=== PATIENT | female | born 1985 | race Caucasian/White ===

== ENCOUNTER 2017-10-22 14:40 | Outpatient (CLI) | payer OTHER, MEDICAID ==
[2017-10-22 16:19] LABS: ADD MAN DIFF? NO
[2017-10-22 16:24] LABS: BASOPHILS % 0.3 % (0.0-2.0); EOSINOPHILS # 0.2 10^3/ul (0.0-0.5); EOSINOPHILS % 1.5 % (0.0-7.0); HEMATOCRIT 34.3 % (37.0-47.0); HEMOGLOBIN 11.5 g/dl (12.0-16.0); LYMPHOCYTES # 1.7 10^3/ul (0.8-2.9); LYMPHOCYTES % 14.2 % (15.0-51.0); MEAN CORPUSCULAR HEMOGLOBIN 28.3 pg (29.0-33.0); MEAN CORPUSCULAR HGB CONC 33.5 g/dl (32.0-37.0); MEAN CORPUSCULAR VOLUME 84.3 fl (82.0-101.0); MONOCYTE # 0.6 10^3/ul (0.3-0.9); MONOCYTES % 4.8 % (0.0-11.0); NEUTROPHIL # 9.4 10^3/ul (1.6-7.5); NEUTROPHILS % 77.9 % (39.0-77.0); PLATELET COUNT 277 10^3/UL (140-415); RED BLOOD COUNT 4.07 10^6/ul (4.20-5.40); RED CELL DISTRIBUTION WIDTH 13.8 % (11.5-14.5)
[2017-10-22 16:46] LABS: ALANINE AMINOTRANSFERASE 31 IU/L (13-69); ALBUMIN 3.6 g/dl (3.3-4.9); ALBUMIN/GLOBULIN RATIO 1.02; ALKALINE PHOSPHATASE 110 IU/L (42-121); ANION GAP 13 (8-16); ASPARTATE AMINO TRANSFERASE 21 IU/L (15-46); BILIRUBIN,INDIRECT 0.1 mg/dl (0-1.1); BILIRUBIN,TOTAL 0.1 mg/dl (0.2-1.3); BLOOD UREA NITROGEN 9 mg/dl (7-20); CALCIUM 9.5 mg/dl (8.4-10.2); CARBON DIOXIDE 25 mmol/L (21-31); CHLORIDE 106 mmol/L (97-110); CREATININE 0.47 mg/dl (0.44-1.00); GLUCOSE 86 mg/dl (70-220); POTASSIUM 3.6 mmol/L (3.5-5.1); SODIUM 140 mmol/L (135-144); TOTAL PROTEIN 7.1 g/dl (6.1-8.1)
[2017-10-22 16:48] LABS: ADD UMIC NO; UR ASCORBIC ACID NEGATIVE (NEGATIVE); UR BILIRUBIN (Dip) NEGATIVE (NEGATIVE); UR BLOOD (Dip) NEGATIVE (NEGATIVE); UR CLARITY CLEAR (CLEAR); UR COLOR COLORLESS (YELLOW); UR GLUCOSE (Dip) NEGATIVE (NEGATIVE); UR KETONES (Dip) NEGATIVE (NEGATIVE); UR LEUKOCYTE ESTERASE (Dip) NEGATIVE Leu/ul (NEGATIVE); UR NITRITE (Dip) NEGATIVE (NEGATIVE); UR TOTAL PROTEIN (Dip) NEGATIVE (NEGATIVE); UR UROBILINOGEN (Dip) NEGATIVE (NEGATIVE)
[2017-10-22 17:16] LABS: HEPATITIS B SURFACE ANTIGEN NEGATIVE (NEGATIVE)
[2017-10-22 17:33] LABS: HIV 1&2 ANTIBODY NEGATIVE (NEGATIVE)
[2017-10-22 21:09] LABS: RUBELLA IGG AB SCREEN POSITIVE
[2017-10-23 17:38] LABS: RAPID PLASMA REAGIN NONREACTIVE (NR)
== END 2017-10-22 18:00 | disposition home or self-care (01) ==
LOC: OBT 14:40 → L-D 14:40 → OBT 18:00
DX: O09.32 Supervision of pregnancy with insufficient antenatal care, second trimester (principal); Z3A.23 23 weeks gestation of pregnancy
CPT/HCPCS: 76815; 76817; 80053; 81003; 85025; 86592; 86703; 86762; 86900; 86901; 87340; 87591

== ENCOUNTER 2018-02-12 14:17 | Inpatient (IN) | payer OTHER ==
[~2018-02-12 14:17] MED LIST: OXYTOCIN 30 UNITS/LR 500 ML BAG IV
[2018-02-12 15:43] LABS: ADD UMIC YES; UR ASCORBIC ACID NEGATIVE (NEGATIVE); UR BACTERIA FEW /HPF (NONE SEEN); UR BILIRUBIN (Dip) NEGATIVE (NEGATIVE); UR BLOOD (Dip) 1+ mg/dL (NEGATIVE); UR CLARITY CLOUDY (CLEAR); UR COLOR YELLOW (YELLOW); UR GLUCOSE (Dip) NEGATIVE (NEGATIVE); UR KETONES (Dip) TRACE mg/dL (NEGATIVE); UR LEUKOCYTE ESTERASE (Dip) 3+ Leu/ul (NEGATIVE); UR MUCUS FEW /HPF (NONE SEEN); UR NITRITE (Dip) NEGATIVE (NEGATIVE); UR RBC 1 /HPF (0-5); UR SPECIFIC GRAVITY (Dip) 1.023 (1.003-1.030); UR SQUAMOUS EPITHELIAL CELL MANY /HPF (FEW); UR TOTAL PROTEIN (Dip) 1+ mg/dl (NEGATIVE); UR UROBILINOGEN (Dip) NEGATIVE (NEGATIVE); UR WBC 24 /HPF (0-5)
[2018-02-12 16:20] LABS: HEMOGLOBIN A1C 5.7 % (0-5.9)
[2018-02-12] MEDS ORDERED: BUTORPHANOL 2 MG INJ IV (18:30)
[2018-02-12] MEDS ORDERED: LIDOCAINE 1% (MPF) 30 ML INJ INJ (18:30)
[2018-02-12] MEDS ORDERED: METHYLERGONOVINE 0.2 MG INJ IM (18:30)
[2018-02-12] MEDS ORDERED: BUTORPHANOL 1 MG INJ IV (18:30)
[2018-02-12] MEDS ORDERED: CARBOPROST 250 MCG INJ IM (18:30)
[2018-02-12] MEDS ORDERED: MISOPROSTOL 200 MCG TAB PR (18:30)
[2018-02-12] MEDS ORDERED: OXYTOCIN 30 UNITS/LR 500 ML IV ×2 (18:30)
[2018-02-12 18:35] LABS: ADD MAN DIFF? NO
[2018-02-12 18:37] LABS: WHITE BLOOD COUNT 10.2 10^3/ul (4.8-10.8)
[2018-02-12 18:37] LABS: BASOPHILS % 0.4 % (0.0-2.0); EOSINOPHILS # 0.2 10^3/ul (0.0-0.5); EOSINOPHILS % 1.6 % (0.0-7.0); HEMATOCRIT 34.3 % (37.0-47.0); LYMPHOCYTES # 1.3 10^3/ul (0.8-2.9); LYMPHOCYTES % 12.3 % (15.0-51.0); MEAN CORPUSCULAR HGB CONC 32.1 g/dl (32.0-37.0); MEAN CORPUSCULAR VOLUME 81.1 fl (82.0-101.0); MEAN PLATELET VOLUME 11.6 fl (7.4-10.4); MONOCYTE # 0.7 10^3/ul (0.3-0.9); MONOCYTES % 6.5 % (0.0-11.0); NEUTROPHIL # 8.1 10^3/ul (1.6-7.5); NEUTROPHILS % 78.8 % (39.0-77.0); PLATELET COUNT 318 10^3/UL (140-415); RED BLOOD COUNT 4.23 10^6/ul (4.20-5.40); RED CELL DISTRIBUTION WIDTH 15.5 % (11.5-14.5)
[2018-02-12 18:57] LABS: INR 0.92; PROTIME 12.4 Sec (11.9-14.9)
[2018-02-12 18:58] LABS: PARTIAL THROMBOPLASTIN TIME 27.7 Sec (25.0-35.0)
[2018-02-12] MEDS: AMPICILLIN 2 GM/NS (PMX) 100 ML IV (19:00)
[2018-02-12] MEDS: LACTATED RINGER'S 1,000 ML IV* ×2 (19:00→20:09)
[2018-02-12] MEDS ORDERED: METOCLOPRAMIDE 10 MG INJ IV (20:30)
[2018-02-12] MEDS ORDERED: FENTAnyl 50 MCG/ML VIAL IV ×2 (20:30)
[2018-02-12] MEDS ORDERED: HYDROmorphONE 1 MG/5 ML IV SYRINGE IV ×3 (20:30)
[2018-02-12] MEDS ORDERED: DIPHENHYDRAMINE 50 MG INJ IV (20:30)
[2018-02-12] MEDS ORDERED: ONDANSETRON 4 MG INJ IV (20:30)
[2018-02-12] MEDS ORDERED: ALBUTEROL 0.083% (NEB) 2.5 MG/3 ML AMP HHN (20:30)
[2018-02-12] MEDS ORDERED: NALOXONE (0.4 MG/ML) INJ IV (20:30)
[2018-02-12] MEDS ORDERED: morphine SULFATE/PF (10 MG/10 ML) INJ (22:16)
[2018-02-12] MEDS ORDERED: BUPIVACAINE 0.75%/DEXT (SPINAL) 2 ML INJ (22:16)
[2018-02-12] MEDS ORDERED: AMPICILLIN 1 GM/NS (PMX) 50 ML IV (22:30)
[2018-02-12] MEDS ORDERED: PHENYLephrine (100 MCG/ML) 5ML SYG (22:36)
[2018-02-13] MEDS: OXYTOCIN 30 UNITS/LR 500 ML IV (00:15)
[2018-02-13] MEDS: CEFAZOLIN 2 GM/50 ML (PMX) 50 ML IV (00:44)
[2018-02-13] MEDS ORDERED: HYDROmorphONE 0.5 MG/0.5 ML SYG IV ×2 (01:30)
[2018-02-13] MEDS ORDERED: DIPHENHYDRAMINE 50 MG INJ IV (01:30)
[2018-02-13] MEDS ORDERED: NALOXONE (0.4 MG/ML) INJ IV (01:30)
[2018-02-13] MEDS ORDERED: ONDANSETRON 4 MG INJ IV (01:30)
[2018-02-13 02:19] LABS: AMPHETAMINE/METHAMPHETAMINE Negative (NEGATIVE); BARBITURATES Negative (NEGATIVE); BENZODIAZEPINES Negative (NEGATIVE); CANNABINOIDS Negative (NEGATIVE); OPIATES Negative (NEGATIVE)
[2018-02-13 02:20] LABS: COCAINE Negative (NEGATIVE)
[2018-02-13] MEDS ORDERED: OXYTOCIN 30 UNITS/LR 500 ML IV (04:00)
[2018-02-13] MEDS ORDERED: ZOLPIDEM 5 MG TAB PO (04:00)
[2018-02-13] MEDS ORDERED: METHYLERGONOVINE 0.2 MG INJ IM (04:00)
[2018-02-13] MEDS ORDERED: MISOPROSTOL 200 MCG TAB PR (04:00)
[2018-02-13] MEDS ORDERED: CARBOPROST 250 MCG INJ IM (04:00)
[2018-02-13] MEDS: LANOLIN 7 GM TUBE TOP (04:58)
[2018-02-13] MEDS: LACTATED RINGER'S 1,000 ML IV ×3 (04:58→19:57)
[2018-02-13 09:21] LABS: ADD MAN DIFF? NO
[2018-02-13 09:28] LABS: BASOPHILS % 0.3 % (0.0-2.0); EOSINOPHILS # 0.1 10^3/ul (0.0-0.5); EOSINOPHILS % 0.9 % (0.0-7.0); HEMATOCRIT 30.2 % (37.0-47.0); HEMOGLOBIN 9.9 g/dl (12.0-16.0); LYMPHOCYTES # 1.7 10^3/ul (0.8-2.9); LYMPHOCYTES % 14.9 % (15.0-51.0); MEAN CORPUSCULAR HEMOGLOBIN 26.5 pg (29.0-33.0); MEAN CORPUSCULAR HGB CONC 32.8 g/dl (32.0-37.0); MEAN CORPUSCULAR VOLUME 80.7 fl (82.0-101.0); MEAN PLATELET VOLUME 11.2 fl (7.4-10.4); MONOCYTE # 0.8 10^3/ul (0.3-0.9); MONOCYTES % 6.7 % (0.0-11.0); NEUTROPHIL # 8.9 10^3/ul (1.6-7.5); NEUTROPHILS % 76.7 % (39.0-77.0); PLATELET COUNT 272 10^3/UL (140-415); RED BLOOD COUNT 3.74 10^6/ul (4.20-5.40); RED CELL DISTRIBUTION WIDTH 15.3 % (11.5-14.5)
[2018-02-13 09:28] LABS: WHITE BLOOD COUNT 11.7 10^3/ul (4.8-10.8)
[2018-02-13] MEDS: KETOROLAC 30 MG INJ IV ×3 (10:01→22:37)
[2018-02-13] MEDS: SENNA/DOCUSATE NA (8.6MG/50MG) TAB PO ×2 (10:02→21:24)
[2018-02-13 16:09] LABS: RAPID PLASMA REAGIN NONREACTIVE (NR)
[2018-02-13] MEDS: CEFAZOLIN 2 GM/50 ML (PMX) 50 ML IVPB (16:36)
[2018-02-14] MEDS: CEFAZOLIN 2 GM/50 ML (PMX) 50 ML IVPB ×4 (00:16→23:58)
[2018-02-14] MEDS ORDERED: DIPHENHYDRAMINE 50 MG INJ IV (01:30)
[2018-02-14] MEDS ORDERED: ONDANSETRON 4 MG INJ IV (01:30)
[2018-02-14] MEDS ORDERED: OXYCODONE/ACETAMINOPHEN (5/325) TAB PO (01:30)
[2018-02-14] MEDS: OXYCODONE/ACETAMINOPHEN (5/325) TAB PO ×2 (03:30→13:47)
[2018-02-14] MEDS: LACTATED RINGER'S 1,000 ML IV ×3 (03:57→19:57)
[2018-02-14] MEDS: IBUPROFEN 600 MG TAB PO ×4 (05:41→23:58)
[2018-02-14] MEDS: SENNA/DOCUSATE NA (8.6MG/50MG) TAB PO ×2 (09:04→21:10)
[2018-02-14] MEDS: DOCUSATE SODIUM 100 MG CAP PO (21:10)
[2018-02-14] MEDS: POLYSACCHARIDE IRON COMPLEX CAP PO (21:11)
[2018-02-15] MEDS: OXYCODONE/ACETAMINOPHEN (5/325) TAB PO ×2 (03:33→09:43)
[2018-02-15] MEDS: LACTATED RINGER'S 1,000 ML IV (03:57)
[2018-02-15] MEDS: IBUPROFEN 600 MG TAB PO ×2 (06:31→11:16)
[2018-02-15] MEDS: SENNA/DOCUSATE NA (8.6MG/50MG) TAB PO (09:35)
[2018-02-15] MEDS: POLYSACCHARIDE IRON COMPLEX CAP PO (09:35)
[2018-02-15] MEDS: CEFAZOLIN 2 GM/50 ML (PMX) 50 ML IVPB (09:35)
[2018-02-15] MEDS: DOCUSATE SODIUM 100 MG CAP PO (09:35)
[2018-02-15] MEDS ORDERED: DIPHTH/TET/ACEL PERTUSS (ADULT) 0.5 ML VIAL IM* (10:00)
[2018-02-15] MEDS: DIPHTH/TET/ACEL PERTUSS (ADULT) 0.5 ML VIAL IM* (11:17)
[2018-02-16] MEDS ORDERED: DIPHTH/TET/ACEL PERTUSS (ADULT) 0.5 ML VIAL IM* (09:00)
== END 2018-02-15 16:00 | disposition home or self-care (01) | DRG 766 ==
LOC: OBT 14:17 → L-D 02-13 00:01 → PP1 02-13 03:02 → OBT 18:15 → L-D 18:15
PROC: 10D00Z1 Extraction of Products of Conception, Low, Open Approach (ICD-10-PCS; principal; 2018-02-12)
PROC: 3E033VJ Introduction of Other Hormone into Peripheral Vein, Percutaneous Approach (ICD-10-PCS; 2018-02-12)
DX: O34.211 Maternal care for low transverse scar from previous cesarean delivery (principal); Z3A.39 39 weeks gestation of pregnancy; Z37.0 Single live birth
CPT/HCPCS: 76815; 76818; 80307; 81001; 83036; 85025; 85610; 85730; 86592; 86850; 86900; 86901; 87081; 87086; 90715; 99464